=== PATIENT | female | born 1945 | race Caucasian/White ===

== ENCOUNTER 2023-10-23 05:53 | Emergency (ER) | payer SELFPAY ==
[2023-10-23] VITALS (9 sets, daily range): BP systolic 135–244; BP diastolic 54–111
[2023-10-23 06:10] LABS: BASO% 0.2 % (0-3); EOS% 2.9 % (0-8); HEMATOCRIT 43.3 % (37.0-47.0); HEMOGLOBIN 13.9 g/dl (12.0-16.0); IMMATURE GRANULOCYTES 0.3 % (0.0-5.0); LYMPH% 18.7 % (15-41); MEAN CELL VOLUME 91.5 fL CALC (80.0-100.0); MEAN CORPUSCULAR HGB 29.4 pG CALC (26.0-32.0); MEAN CORPUSCULAR HGB CONC 32.1 g/dL CAL (32.0-36.0); MONO% 4.9 % (2-13); NEUT# 9.43 thou/uL (2.00-7.15); RED BLOOD COUNT 4.73 mill/uL (4.20-5.60); RED CELL DISTRI WIDTH 14.2 % (11.5-15.5)
[2023-10-23] MEDS ORDERED: UNABLE TO RECONCILE (06:10)
[2023-10-23 06:20] LABS: ALBUMIN 4.5 g/dL (3.2-5.0); BILIRUBIN, TOTAL 0.6 mg/dL (0.02-1.3); CREATININE 1.1 mg/dL (0.5-1.0); POTASSIUM 3.4 mmol/l (3.5-5.1); TOTAL PROTEIN 7.4 g/dL (6.3-8.2)
[2023-10-23 07:30] LABS: TSH, 3RD GENERATION 22.4 uIU/mL (0.47 - 4.68)
== END 2023-10-23 11:08 | disposition home or self-care (01) | DRG 305 ==
LOC: ED 05:53
PROVIDERS: Family Medicine
DX: I10 Essential (primary) hypertension (principal)